=== PATIENT | female | born 2000 | race African-American/Black ===

== ENCOUNTER 2023-06-02 03:06 | Emergency (ER) | payer MEDICARE, OTHER ==
[2023-06-02 03:15] VITALS: BP 128/76; RESP 16; TEMP 100.2; BMI 25.6
[2023-06-02] MEDS ORDERED: ACETAMINOPHEN 325 MG TABLET (FP) PO ONE (03:30)
[2023-06-02] MEDS ORDERED: ACETAMINOPHEN 325 MG TABLET (FP) ONE (03:41)
[2023-06-02 03:55] VITALS: PULSE 101
== END 2023-06-02 03:58 | disposition home or self-care (01) ==
LOC: FER 03:06
DX: R07.89 Other chest pain (principal); R00.2 Palpitations; R00.0 Tachycardia, unspecified; R09.81 Nasal congestion; J06.9 Acute upper respiratory infection, unspecified; Z20.822 Contact with and (suspected) exposure to COVID-19
CPT/HCPCS: 0241U-QW; 93005; 99284-25